=== PATIENT | female | born 1950 | race Caucasian/White ===

== ENCOUNTER 2018-01-18 11:24 | Emergency (ER) | payer OTHER ==
[~2018-01-18] VITALS: Ht 162.6 cm; Wt 78.0 kg
[2018-01-18] MEDS ORDERED: EC-NAPROSYN500 MG PO (12:59)
[2018-01-18 13:01] VITALS: BP 138/78
== END 2018-01-18 13:09 | disposition home or self-care (01) | DRG 601 ==
LOC: ED 11:24
DX: N63.0 Unspecified lump in unspecified breast (principal)